=== PATIENT | male | born 1950 | race Caucasian/White ===

== ENCOUNTER 2018-01-29 13:33 | Emergency (ER) | payer MEDICARE, BC ==
[~2018-01-29] VITALS: Ht 185.4 cm; Wt 95.2 kg
[2018-01-29] MEDS ORDERED: ATEN25 (13:42)
[2018-01-29] MEDS ORDERED: Ultram50 MG PO (17:11)
== END 2018-01-29 17:24 | disposition home or self-care (01) ==
LOC: ER 13:33
DX: S63.287A Dislocation of proximal interphalangeal joint of left little finger, initial encounter (principal); I10 Essential (primary) hypertension; Z79.899 Other long term (current) drug therapy; W01.0XXA Fall on same level from slipping, tripping and stumbling without subsequent striking against object, initial encounter
CPT/HCPCS: 26770; 73130; 73140; 99283-25